=== PATIENT | male | born 1950 | race Caucasian/White ===

== ENCOUNTER 2017-12-08 22:08 | Inpatient (IN) | payer MEDICARE, OTHER ==
[2017-12-08] VITALS (7 sets, daily range): BP systolic 156–180; BP diastolic 80–90; PULSE 73–77; RESP 16; TEMP 97.8; O2SAT 97–99
[~2017-12-08] VITALS: Ht 172.7 cm; Wt 89.1 kg
[2017-12-08] MEDS ORDERED: SODIUM CHLOR 0.9% 1000 ML INJ 1,000 ML IV ONE (22:11)
[2017-12-08 22:22] LABS: AUTOMATED NEUTROPHIL # 3.8 TH/MM3 (1.8-7.7); BASOPHIL % 0.4 % (0.0-2.0); EOSINOPHIL # 0.2 TH/MM3 (0-0.4); EOSINOPHIL % 2.9 % (0.0-4.0); HEMATOCRIT 40.6 % (39.0-51.0); HEMOGLOBIN 13.9 GM/DL (13.0-17.0); LYMPHOCYTE # 2.4 TH/MM3 (1.0-4.8); MEAN CELL VOLUME 98.2 FL (80.0-100.0); MEAN CORPUSCULAR HEMOGLOBIN 33.7 PG (27.0-34.0); MEAN CORPUSCULAR HGB CONC 34.4 % (32.0-36.0); MEAN PLATELET VOLUME 7.5 FL (7.0-11.0); MONOCYTE # 0.9 TH/MM3 (0-0.9); NEUT % 51.7 % (16.0-70.0); PLATELET COUNT 245 TH/MM3 (150-450); RED BLOOD COUNT 4.13 MIL/MM3 (4.50-5.90); RED CELL DISTRIBUTION WIDTH 12.9 % (11.6-17.2); WHITE BLOOD COUNT 7.4 TH/MM3 (4.0-11.0)
--- NOTE | 2017-12-08 22:28 | RADRPT ---
EXAM DATE/TIME: 12/08/2017 22:14 [facility] COMPARISON: No previous studies available for comparison. INDICATIONS : Stroke alert; right sided weakness. RADIATION DOSE: 66.34 CTDIvol (mGy) This report was called by Dr. Edge to Dr. Niño at 10: 20 PM on 12/08/17. MEDICAL HISTORY : Non-responsive. SURGICAL HISTORY : Non-responsive. ENCOUNTER: Initial ACUITY: 1 day PAIN SCALE: 0/10 LOCATION: cranial TECHNIQUE: Multiple contiguous axial images were obtained of the head. Using automated exposure control and adj ustment of the mA and/or kV according to patient size, radiation dose was kept as low as reasonably a chievable to obtain optimal diagnostic quality images. DICOM format image data is available electro nically for review and comparison. FINDINGS: Moderate periventricular and subcortical white matter small vessel ischemic changes are noted bilater ally. Mild central cerebral atrophy is noted. There is no acute hemorrhage, acute infarct, mass effec t, midline shift or extra-axial fluid collections. CONCLUSION: 1. No acute infarct, acute hemorrhage, mass effect or extra-axial fluid collections. 2. Moderate periventricular and subcortical white matter small vessel ischemic changes bilaterally. 3. Mild central cerebral atrophy. Juanito Edge MD on December 08, 2017 at 22:24 Board Certified Radiologist. This report was verified electronically.
[2017-12-08 22:41] LABS: TROPONIN I LESS THAN 0.02 NG/ML (0.02-0.05)
[2017-12-08] MEDS ORDERED: ALTEPLASE BOLUS 9 MG/9 ML SYR IV ONE (22:45)
[2017-12-08] MEDS ORDERED: MISCELLANEOUS NURSING INFORMATION XX PRN (22:45)
[2017-12-08] MEDS ORDERED: ALTEPLASE DRIP IV ONE (22:45)
[2017-12-08] MEDS ORDERED: SODIUM CHLORIDE 0.9% 50 ML BAG IVF ONE (22:45)
--- NOTE | 2017-12-08 22:46 | PD ---
HPI Chief Complaint: Stroke Alert Time Seen by Provider: 22:11 Travel History International Travel<30 days: No Contact w/Intl Traveler<30days: No Traveled to known affect area: No History of Present Illness HPI 67-year-old male brought in by ambulance from home as a stroke alert. At approximately a 9:45 PM, while watching TV in his bed the patient noticed that he could not move his right arm properly. He also experienced numbness/ tingling in his right arm and right leg. His who is a nurse immediately call 911. The patient has history of hypertension and takes aspirin 81 mg twice weekly. He denies chest pain or dyspnea. No visual disturbances. Upon arrival to the emergency department he reports that his left arm feels just as weak as it did at time of onset. He admits to drinking 6 beers since noon today , and drinks about 6 beers daily. No trauma. No recent major surgeries or trauma. FORMERLY [facility], [facility] Social History Tobacco Use: No (former smoker) Allergies-Medications (Allergen,Severity, Reaction): Coded Allergies: No Known Allergies (Unverified , 12/08/17) Reported Meds & Prescriptions Reported Meds & Active Scripts Active Reported Ramipril 10 Mg Cap 10 Mg PO DAILY Rabeprazole (Rabeprazole Sodium) 20 Mg Tab 20 Mg PO DAILY Aspirin 325 Mg Tab 325 Mg PO TUESDAY, TUESDAY Review of Systems Except as stated in HPI: all other systems reviewed are Neg Physical Exam Narrative GENERAL: Well-developed, well-nourished, awake, alert, GCS 15, no apparent distress. SKIN: Focused skin assessment warm/dry. HEAD: Atraumatic. Normocephalic. EYES: Pupils equal, round, 3 mm, reactive to light. EOMI. No scleral icterus. No injection or drainage. ENT: No nasal bleeding or discharge. Mucous membranes pink and moist. NECK: Trachea midline. No JVD. CARDIOVASCULAR: Regular rate and rhythm. No murmur appreciated. RESPIRATORY: No accessory muscle use. Clear to auscultation. Breath sounds equal bilaterally. GASTROINTESTINAL: Abdomen soft, non-tender, nondistended. Hepatic and splenic margins not palpable. MUSCULOSKELETAL: No obvious deformities. No clubbing. No cyanosis. No edema. NEUROLOGICAL: Awake and alert. No obvious cranial nerve deficits. Visual fernandez intact. Tow Motor Operator strength appears strong and equal bilaterally. There is pronator drift on the right. Ataxia with xavmqz-[id number] test with the right hand. Normal kqsyny-[id number]-pkvjkc test on the left hand. Bilateral lower extremities are without ataxia, without deficits, with equal strength bilaterally. PSYCHIATRIC: Appropriate mood and affect; insight and judgment normal. Data Data Last Documented VS Vital Signs Date Time Temp Pulse Resp B/P (MAP) Pulse Ox O2 Delivery O2 Flow Rate FiO2 12/08/17 22:24 98 Nasal Cannula 2.00 12/08/17 22:20 73 16 156/83 (107) 12/08/17 22:09 97.8 Orders Orders Activity Bed Rest (12/08/17 ) Electrocardiogram (12/08/17 ) I-Stat Profile (12/08/17 22:11) Prothrombin Time / Inr (Pt) (12/08/17 22:11) Act Partial Throm Time (Ptt) (12/08/17 22:11) Complete Blood Count With Diff (12/08/17 22:11) Fibrinogen (12/08/17 22:11) Creatine Kinase (Cpk) (12/08/17 22:11) Troponin I (12/08/17 22:11) Ua Includes Microscopic (12/08/17 22:11) Drug Screen, Random Urine (12/08/17 22:11) Type And Screen (12/08/17 22:11) Ct Brain W/O Iv Contrast(Rout) (12/08/17 ) Consult Neurology (12/08/17 ) Blood Glucose (12/08/17 22:11) Ecg Monitoring (12/08/17 22:11) Neuro Checks Q2HX12,Q4H (12/08/17 22:11) Nursing Bedside Swallow Assess .ONCE (12/08/17 22:11) Iv Access Insert/Monitor (12/08/17 22:11) NPO (12/08/17 22:11) Oximetry (12/08/17 22:11) Resp Oxygen Nc Stroke (12/08/17 ) Sodium Chlor 0.9% 1000 Ml Inj (Ns 1000 M (12/08/17 22:11) Cath For Specimen (12/08/17 22:11) Alcohol (Ethanol) (12/08/17 22:11) ^ Call Pharmacy (12/08/17 22:36) Nih Stroke Scale - Nihss .ONCE (12/08/17 22:36) Anticoagulant Alert (12/08/17 22:36) ^ Post Infusion Restrictions (12/08/17 22:36) ^ Medication Alert (12/08/17 22:36) Vital Signs (Adult) .As directed (12/08/17 22:36) Notify Dr: Blood Pressure (12/08/17 22:36) ^ Medication Alert (12/08/17 22:36) Alteplase Bolus (Activase Bolus) (12/08/17 22:45) Alteplase Drip (Activase Drip) (12/08/17 22:45) Sodium Chloride 0.9% Inj (Ns Inj) (12/08/17 22:45) Misc Nursing Information (12/08/17 22:45) Resp Oxygen Nc Stroke (12/08/17 ) Ct Brain W/O Iv Contrast(Rout) (12/09/17 ) Admit Order (Ed Use Only) (12/08/17 22:46) Labs Laboratory Tests Test 12/08/17 22:00 White Blood Count 7.4 TH/MM3 Red Blood Count 4.13 MIL/MM3 Hemoglobin 13.9 GM/DL Bedside Hemoglobin 14.6 G/DL Hematocrit 40.6 % Bedside Hematocrit 43.0 % Mean Corpuscular Volume 98.2 FL Mean Corpuscular Hemoglobin 33.7 PG Mean Corpuscular Hemoglobin Concent 34.4 % Red Cell Distribution Width 12.9 % Platelet Count 245 TH/MM3 Mean Platelet Volume 7.5 FL Neutrophils (%) (Auto) 51.7 % Lymphocytes (%) (Auto) 33.0 % Monocytes (%) (Auto) 12.0 % Eosinophils (%) (Auto) 2.9 % Basophils (%) (Auto) 0.4 % Neutrophils # (Auto) 3.8 TH/MM3 Lymphocytes # (Auto) 2.4 TH/MM3 Monocytes # (Auto) 0.9 TH/MM3 Eosinophils # (Auto) 0.2 TH/MM3 Basophils # (Auto) 0.0 TH/MM3 CBC Comment DIFF FINAL Differential Comment Prothrombin Time 12.9 SEC Prothromb Time International Ratio 1.3 RATIO Activated Partial Thromboplast Time 32.7 SEC Fibrinogen 278 mg/dL Bedside Sodium 134 MMOL/L Bedside Potassium 3.9 MMOL/L Bedside Chloride 94 MMOL/L Bedside Blood Urea Nitrogen 6 MG/DL Bedside Creatinine 0.9 MG/DL Bedside Glucose 97 MG/DL Total Creatine Kinase 97 U/L Troponin I LESS THAN 0.02 NG/ML Triglycerides Level 112 MG/DL Cholesterol Level 184 MG/DL LDL Cholesterol 75 MG/DL HDL Cholesterol 86.7 MG/DL Cholesterol/HDL Ratio 2.12 RATIO Ethyl Alcohol Level 137 MG/DL [facility] Medical Screen Exam Complete: Yes Emergency Medical Condition: Yes Differential Diagnosis CVA, ICH, metabolic abnormality, Narrative Course 10:10 PM: Case discussed with neurologist Dr. Casey. Patient is a TPA candidate. 10:25 PM: I was called by radiologist Dr. Edge who reports that there is no acute intracranial abnormality such as hemorrhage. Patient is awake and alert with a GCS of 15. Upon return from CT scan he remains with feeling weakness in his right upper extremity with pronator drift and ataxia in the right upper extremity on exam. I discussed the risks and benefits of TPA with the patient and the patient's , and they would like to proceed with treatment with this medication. Case discussed with display artist Dr. Rosario who will admit the patient to his service. Critical Care Narrative Aggregate critical care time was 35 minutes. Time to perform other separately billable procedures was not included in the critical care time. My time did not include minutes spent treating any other patients simultaneously or on activities that did not directly contribute to the patient's treatment. The services I provided to this patient were to treat and/or prevent clinically significant deterioration that could result in: , permanent disability, worsening clinical condition I provided critical care services requiring my management, as noted below: Chart data review, documentation time, medication orders and management, vital sign assessments/reviewing monitor data, ordering and reviewing lab tests, ordering and interpreting/reviewing x-rays and diagnostic studies, care of the patient and discussion of the patient with the admitting physicians. Stroke Alert NIHSS NIH Stroke Scale Result: 1 NIHSS Time Completed: 23:50 Diagnosis Diagnosis: Primary Impression: CVA (cerebral vascular accident) Qualified Codes: I63.9 - Cerebral infarction, unspecified Admitting Physician Requests: Admit Zac Niño MD Dec 08, 2017 22:46
[2017-12-08] MEDS: SODIUM CHLOR 0.9% 1000 ML INJ 1,000 ML IV SCH (22:51)
[2017-12-08] MEDS ORDERED: CHLORHEXIDINE GLUCONATE 2 % 1 PACK (2 CLOTHS) TOP PRN (23:00)
[2017-12-08] MEDS ORDERED: MAGNESIUM OXIDE 400 MG TAB PO PRN (23:00)
[2017-12-08] MEDS ORDERED: MAGNESIUM HYDROXIDE SUSP 30 ML CUP PO PRN (23:00)
[2017-12-08] MEDS ORDERED: MAGNESIUM SULFATE INJ 4 GM in SODIUM CHLORIDE 0.9% INJ 92 ML IV PRN (23:00)
[2017-12-08] MEDS ORDERED: MISCELLANEOUS NURSING INFORMATION XX SCH (23:00)
[2017-12-08] MEDS ORDERED: POTASSIUM PHOSPHATE INJ 30 MMOL in SODIUM CHLOR 0.9% 250 ML INJ 250 ML IV PRN (23:00)
[2017-12-08] MEDS ORDERED: POTASSIUM CHLOR 20 MEQ PREMIX 100 ML IV PRN ×2 (23:00)
[2017-12-08] MEDS ORDERED: POTASSIUM PHOSPHATE MONOBASIC 500 MG TAB PO PRN (23:00)
[2017-12-08] MEDS ORDERED: POTASSIUM PHOSPHATE MONOBASIC 500 MG TAB PO/TUBE PRN (23:00)
[2017-12-08] MEDS ORDERED: POTASSIUM CHLORIDE 25 MEQ EFFERVESCENT TAB PO PRN (23:00)
[2017-12-08] MEDS ORDERED: MAGNESIUM SULFATE INJ 2 GM in SODIUM CHLORIDE 0.9% INJ 96 ML IV PRN (23:00)
[2017-12-08] MEDS ORDERED: hydrALAZINE HCL 20 MG/ML VIAL IV PUSH PRN (23:00)
[2017-12-08] MEDS ORDERED: ACETAMINOPHEN 325 MG TAB PO PRN (23:00)
[2017-12-08] MEDS ORDERED: POTASSIUM CHLOR 40 MEQ PREMIX 100 ML IV PRN ×2 (23:00)
[2017-12-08] MEDS ORDERED: ONDANSETRON HCL 4 MG/2 ML VIAL IV PUSH PRN (23:00)
[2017-12-08] MEDS ORDERED: RESP: ALBUTEROL 2.5 MG/IPRATROPIUM 0.5 MG NEB (PRN) INH (23:00)
[2017-12-08] MEDS ORDERED: SODIUM PHOSPHATE INJ 30 MMOL in SODIUM CHLOR 0.9% 250 ML INJ 240 ML IV PRN (23:00)
[2017-12-08 23:05] LABS: INTERNATIONAL NORMALIZED RATIO 1.3 RATIO; PROTHROMBIN TIME - PATIENT 12.9 SEC (9.8-11.6)
--- NOTE | 2017-12-08 23:08 | HHI.HP ---
HPI Service Critical Care Medicine Primary Care Physician Unknown Admission Diagnosis CVA Diagnosis: Chief Complaint: right arm weakness Travel History International Travel<30 Days: No Contact w/Intl Traveler <30 Da: No Traveled to Known Affected Are: No History of Present Illness This is a 67-year-old male who presents from home after he found he could not use the remote control with his right arm at approximately 9:45 PM. [facility] was called and he was immediately brought in for evaluation. His initial NIH stroke scale as documented by the emergency room nurses was 6. He had a noncontrasted head CT which was negative for acute hemorrhage. Consultation with Dr. Casey with neurology, and together with the ER physician decided to move forward with IV TPA systemically. Patient's symptoms were right-sided weakness along with significant right-sided ataxia. On my evaluation, the patient states he feels symptoms already starting to resolve. He denies any other symptoms such as headache, fever, chills, nausea, vomiting, shortness of breath, chest pain, abdominal pain. The patient does drink approximately 6 beers a day and has drank 6 beers today prior to coming in and had an elevated ethanol level greater than 150. Review of systems otherwise negative. Review of Systems Constitutional: DENIES: Fatigue, Fever, Chills Respiratory: DENIES: Cough, Wheezing, Hemoptysis, Sputum production, Shortness of breath Cardiovascular: DENIES: Chest pain, Palpitations, Syncope, Dyspnea on Exertion , PND, Lower Extremity Edema, Orthopnea Gastrointestinal: DENIES: Abdominal pain, Black stools, Bloody stools, Constipation, Diarrhea, Nausea, Vomiting Hematologic/lymphatic: DENIES: Bruising Neurologic: COMPLAINS OF: Localized weakness, Tremor, DENIES: Abnormal gait, Headache, Paresthesias, Seizures, Speech Problems, Poor Balance Psychiatric: DENIES: Anxiety, Confusion Past Family Social History Allergies: Coded Allergies: No Known Allergies (Unverified , 12/08/17) Past Medical History Hypertension Past Surgical History No recent surgeries. Reported Medications Ramipril 10 Mg Cap 10 Mg PO DAILY Rabeprazole (Rabeprazole Sodium) 20 Mg Tab 20 Mg PO DAILY Aspirin 325 Mg Tab 325 Mg PO TUESDAY, TUESDAY Active Ordered Medications See MAR Family History Reviewed and found to be noncontributory to his acute illness Social History Denies tobacco. Endorses 6 beers per day drinker. Physical Exam Vital Signs Vital Signs Date Time Temp Pulse Resp B/P (MAP) Pulse Ox O2 Delivery O2 Flow Rate FiO2 12/08/17 23:05 75 16 174/90 (118) 97 Nasal Cannula 2.00 12/08/17 22:55 77 16 170/81 (110) 97 Nasal Cannula 2.00 12/08/17 22:24 98 Nasal Cannula 2.00 12/08/17 22:20 73 16 156/83 (107) 97 Nasal Cannula 2.00 12/08/17 22:09 97.8 75 16 179/90 (119) 97 12/08/17 22:00 97 2.00 Physical Exam GENERAL: Middle-aged male, lying in bed, in distress due to his weakness HEENT: Normocephalic. Atraumatic. Pupils equal, round, reactive, conjugate. Mucous membranes are moist NECK: Trachea is midline. There is no JVD. CHEST: Equal chest rise. Room air. CARDIOVASCULAR: Normal rate, regular rhythm. Sinus by telemetry. Blood pressure is 180 systolic on my evaluation ABDOMEN: Soft, nontender, nondistended. No guarding. MUSCULOSKELETAL: Pulses 2+. No peripheral edema. NEUROLOGICAL: GCS of 15. RASS 0. Follows commands in all 4 extremities. Cranial nerves II through XII grossly intact. Muscular skeletal strength is now 5 out of 5 in all 4 extremities. The patient still does have some mild ataxia as evidenced by finger-nose on the right, but per the patient and his this is significantly improved over prior examination. Sensation grossly intact bilaterally Laboratory Laboratory Tests Test 12/08/17 22:00 White Blood Count 7.4 Red Blood Count 4.13 Hemoglobin 13.9 Bedside Hemoglobin 14.6 Hematocrit 40.6 Bedside Hematocrit 43.0 Mean Corpuscular Volume 98.2 Mean Corpuscular Hemoglobin 33.7 Mean Corpuscular Hemoglobin Concent 34.4 Red Cell Distribution Width 12.9 Platelet Count 245 Mean Platelet Volume 7.5 Neutrophils (%) (Auto) 51.7 Lymphocytes (%) (Auto) 33.0 Monocytes (%) (Auto) 12.0 Eosinophils (%) (Auto) 2.9 Basophils (%) (Auto) 0.4 Neutrophils # (Auto) 3.8 Lymphocytes # (Auto) 2.4 Monocytes # (Auto) 0.9 Eosinophils # (Auto) 0.2 Basophils # (Auto) 0.0 CBC Comment DIFF FINAL Differential Comment Prothrombin Time 12.9 Prothromb Time International Ratio 1.3 Activated Partial Thromboplast Time 32.7 Fibrinogen 278 Bedside Sodium 134 Bedside Potassium 3.9 Bedside Chloride 94 Bedside Blood Urea Nitrogen 6 Bedside Creatinine 0.9 Bedside Glucose 97 Total Creatine Kinase 97 Troponin I LESS THAN 0.02 Ethyl Alcohol Level 137 Result Diagram: 12/08/17 2200 Imaging Last Impressions Head CT 12/08/17 0000 Signed Impressions: Service Date/Time: December 22:14 - CONCLUSION: 1. No acute infarct, acute hemorrhage, mass effect or extra-axial fluid collections. 2. Moderate periventricular and subcortical white matter small vessel ischemic changes bilaterally. 3. Mild central cerebral atrophy. MD Scott Gates VTE Risk Assessment Caprini VTE Risk Assessment: Mod/High Risk (score >= 2) VTE Pharm Contraindication: High risk for bleeding Caprini Risk Assessment Model Point Value = 1 Point Value = 2 Point Value = 3 Point Value = 5 Age 41-60 Minor surgery BMI > 25 kg/m2 Swollen legs Varicose veins or History of unexplained or recurrent spontaneous Oral contraceptives or hormone replacement Sepsis (< 1 month) Serious lung disease, including pneumonia (< 1 month) Abnormal pulmonary function Acute myocardial infarction Congestive heart failure (< 1 month) History of inflammatory bowel disease Medical patient at bed rest Age 61-74 Arthroscopic surgery Major open surgery (> 45 min) Laparoscopic surgery (> 45 min) Malignancy Confined to bed (> 72 hours) Immobilizing plaster cast Central venous access Age >= 75 History of VTE Family history of VTE Factor V Leiden Prothrombin [id number] Lupus anticoagulant Anticardiolipin antibodies Elevated serum homocysteine Heparin-induced thrombocytopenia Other congenital or acquired thrombophilia Stroke (< 1 month) Elective arthroplasty Hip, pelvis, or leg fracture Acute spinal cord injury (< 1 month) Prophylaxis Regimen Total Risk Factor Score Risk Level Prophylaxis Regimen 0-1 Low Early ambulation 2 Moderate Order ONE of the following: *Sequential Compression Device (SCD) *Heparin 5000 units SQ BID 3-4 Higher Order ONE of the following medications: *Heparin 5000 units SQ TID *Enoxaparin/Lovenox 40 mg SQ daily (WT < 150 kg, CrCl > 30 mL/min) *Enoxaparin/Lovenox 30 mg SQ daily (WT < 150 kg, CrCl > 10-29 mL/min) *Enoxaparin/Lovenox 30 mg SQ BID (WT < 150 kg, CrCl > 30 mL/min) AND/OR *Sequential Compression Device (SCD) 5 or more Highest Order ONE of the following medications: *Heparin 5000 units SQ TID (Preferred with Epidurals) *Enoxaparin/Lovenox 40 mg SQ daily (WT < 150 kg, CrCl > 30 mL/min) *Enoxaparin/Lovenox 30 mg SQ daily (WT < 150 kg, CrCl > 10-29 mL/min) *Enoxaparin/Lovenox 30 mg SQ BID (WT < 150 kg, CrCl > 30 mL/min) AND *Sequential Compression Device (SCD) Assessment and Plan Assessment and Plan Assessment: 67-year-old male with new onset of right-sided weakness and ataxia, likely acute CVA. Now status post systemic TPA with resolving symptoms. Still high risk for bleeding and significant morbidity given age. Intoxication limits complete neurologic exam, and may make it more difficult to detect changes in mentation or neurologic deficits. Admit to ICU. Frequent neuro checks. Watch for alcohol withdrawal. Critically ill with new acute CVA Active problems: EtOH intoxication Acute CVA Right-sided weakness Right-sided ataxia Hypertensive emergency Plan: Admit to ICU Frequent neuro checks Head of bed elevated Bedrest 24 hours Nursing bedside swallow evaluation prior to any medication administration. Advance diet slowly after this if he passes bedside swallow Speech therapy, physical therapy, Occupational Therapy Lipid panel 2D echo We will need aspirin 24 hours after TPA as well as DVT prophylaxis Watch for EtOH withdrawal We will hold on ordering CIWA protocol given his new acute stroke and need for frequent neuro checks. May need to order CIWA protocol after he is out of his window for bleed conversion Repeat head CT at 24 hours Neurology consultation: Dr. Casey This patient remains critically ill with one or more organ systems which are or may become a threat to life. I have spent in excess of 31 minutes discontinuously in the care and management of this patient. This time is exclusive of procedures, and includes, but is not limited to, evaluation of the patient, review of the medical record, discussions with family, consultants, nursing staff, or respiratory therapy, and documentation in the medical record. Otis Rosario MD Dec 08, 2017 23:08
[2017-12-08] MEDS ORDERED: RABE1TAB PO (23:30)
[2017-12-08] MEDS ORDERED: ASPI-183 PO (23:30)
[2017-12-08] MEDS ORDERED: RAMI10CA PO (23:30)
[2017-12-08 23:47] LABS: CHOLESTEROL/ HDL RATIO 2.12 RATIO; HDL CHOLESTEROL 86.7 MG/DL (40.0-60.0)
[2017-12-09] VITALS (15 sets, daily range): BP systolic 126–174; BP diastolic 60–89; PULSE 58–86; RESP 13–19; TEMP 97.6–98.4; O2SAT 95–100
[2017-12-09] MEDS: LABETALOL HCL 100 MG/20 ML VIAL IV PUSH PRN ×2 (02:22→04:20)
[2017-12-09 03:28] LABS: HEMATOCRIT 37.2 % (39.0-51.0); HEMOGLOBIN 12.7 GM/DL (13.0-17.0); MEAN CELL VOLUME 99.6 FL (80.0-100.0); MEAN CORPUSCULAR HGB CONC 34.1 % (32.0-36.0); MEAN PLATELET VOLUME 7.6 FL (7.0-11.0); PLATELET COUNT 218 TH/MM3 (150-450); RED BLOOD COUNT 3.74 MIL/MM3 (4.50-5.90); RED CELL DISTRIBUTION WIDTH 12.9 % (11.6-17.2); WHITE BLOOD COUNT 10.4 TH/MM3 (4.0-11.0)
[2017-12-09 03:50] LABS: BICARBONATE 24.3 MEQ/L (21.0-32.0); CALCIUM 8.4 MG/DL (8.5-10.1); CREATININE 0.57 MG/DL (0.60-1.30)
[2017-12-09 03:52] LABS: CHOLESTEROL/ HDL RATIO 1.92 RATIO; HDL CHOLESTEROL 81.5 MG/DL (40.0-60.0)
[2017-12-09] MEDS: CHLORHEXIDINE GLUCONATE 2 % 1 PACK (2 CLOTHS) TOP SCH (04:00)
--- NOTE | 2017-12-09 07:25 | HHI.CCPN ---
Subjective Remarks/Hospital Course This is a 67-year-old male who presents from home after he found he could not use the remote control with his right arm at approximately 9:45 PM. [facility] was called and he was immediately brought in for evaluation. His initial NIH stroke scale as documented by the emergency room nurses was 6. He had a noncontrasted head CT which was negative for acute hemorrhage. Consultation with Dr. Casey with neurology, and together with the ER physician decided to move forward with IV TPA systemically. Patient's symptoms were right-sided weakness along with significant right-sided ataxia. On my evaluation, the patient states he feels symptoms already starting to resolve. He denies any other symptoms such as headache, fever, chills, nausea, vomiting, shortness of breath, chest pain, abdominal pain. The patient does drink approximately 6 beers a day and has drank 6 beers today prior to coming in and had an elevated ethanol level greater than 150. Review of systems otherwise negative. 12/09: Symptoms resolved after tPA. Alert, conversant this morning. Hypertensive. Watch for detox - may need CIWA protocol. Objective Vital Signs Date Time Temp Pulse Resp B/P (MAP) Pulse Ox O2 Delivery O2 Flow Rate FiO2 12/09/17 06:00 70 12/09/17 04:00 97.6 15 174/89 (117) 98 12/09/17 01:06 Nasal Cannula 2.00 Intake and Output 12/09/17 12/09/17 12/10/17 08:00 16:00 00:00 Intake Total 120 ml Output Total 1500 ml Balance -1380 ml Result Diagram: 12/09/17 0312 12/09/17 0312 Imaging Last Impressions Head CT 12/08/17 0000 Signed Impressions: Service Date/Time: December 22:14 - CONCLUSION: 1. No acute infarct, acute hemorrhage, mass effect or extra-axial fluid collections. 2. Moderate periventricular and subcortical white matter small vessel ischemic changes bilaterally. 3. Mild central cerebral atrophy. Juanito Edge MD Objective Remarks GENERAL: Middle-aged male, lying in bed, clam. HEENT: Normocephalic. Atraumatic. Pupils equal, round, reactive, conjugate. Mucous membranes are moist NECK: Trachea is midline. Airway widely patent. CHEST: Equal chest rise. Comfortable pattern. CARDIOVASCULAR: Normal rate, regular rhythm. Sinus by telemetry. No JVD. ABDOMEN: Soft, nontender, nondistended. No guarding. BS active. MUSCULOSKELETAL: Pulses 2+. No peripheral edema. Well perfused. NEUROLOGICAL: GCS of 15. RASS 0. Follows commands in all 4 extremities. Cranial nerves II through XII grossly intact. Muscular skeletal strength is now 5 out of 5 in all 4 extremities. Sensation grossly intact bilaterally Conversant. A/P Assessment and Plan Assessment: 67-year-old male with new onset of right-sided weakness and ataxia, likely acute CVA. Now status post systemic TPA with resolving symptoms. Still high risk for bleeding and significant morbidity given age. Intoxication limits complete neurologic exam, and may make it more difficult to detect changes in mentation or neurologic deficits. ICU for 24 hours.. Frequent neuro checks. Watch for alcohol withdrawal. Active problems: EtOH intoxication Acute CVA Right-sided weakness Right-sided ataxia Hypertensive emergency Plan: Admit to ICU Frequent neuro checks Head of bed elevated Bedrest 24 hours Nursing bedside swallow evaluation prior to any medication administration. Advance diet slowly after this if he passes bedside swallow Speech therapy, physical therapy, Occupational Therapy Lipid panel 2D echo We will need aspirin 24 hours after TPA as well as DVT prophylaxis Watch for EtOH withdrawal We will hold on ordering CIWA protocol given his new acute stroke and need for frequent neuro checks. May need to order CIWA protocol after he is out of his window for bleed conversion Repeat head CT at 24 hours Neurology consultation: Dr. Casey Restart MARQUITA-I Overall impression: Resolution of all gross sysmptoms after tPA. Ongoing PT/OT evaluation and followup CT scan today. Elias Stinson MD Dec 09, 2017 07:25
[2017-12-09 07:26] LABS: BACTERIA, URINE RARE /hpf; BILIRUBIN, URINE NEG (NEG); BLOOD, URINE NEG (NEG); GLUCOSE,URINE NEG (NEG); KETONE, URINE NEG (NEG); NITRITE,URINE NEG (NEG); PH, URINE 6.5 (5.0-8.5); URINE COLOR LIGHT-YELLOW (YELLW/STRAW); URINE LEUKOCYTE ESTERASE NEG (NEG)
[2017-12-09] MEDS ORDERED: FLUMAZENIL 0.5 MG/5 ML VIAL IV PUSH PRN (07:30)
[2017-12-09] MEDS ORDERED: LORazepam 2 MG TAB PO PRN (07:30)
[2017-12-09] MEDS ORDERED: LORazepam 2 MG/ML VIAL IV PUSH PRN ×4 (07:30)
[2017-12-09] MEDS ORDERED: LORazepam 1 MG TAB PO PRN (07:30)
--- NOTE | 2017-12-09 08:50 | EKG ---
Date Performed: 12/08/2017 Time Performed: 22:38:30 PTAGE: 67 years EKG: Sinus rhythm NORMAL ECG NO PREVIOUS TRACING DOCTOR: Nery Christianson Interpretating Date/Time 12/09/2017 08:48:30
--- NOTE | 2017-12-09 09:23 | RADRPT ---
EXAM DATE/TIME: 12/09/2017 08:37 [facility] COMPARISON: No previous studies available for comparison. INDICATIONS : Cerebrovascular accident. MEDICAL HISTORY : Hypertension. Gastroesophageal reflux disease. SURGICAL HISTORY : None. ENCOUNTER: Initial ACUITY: 1 day PAIN SCORE: 10 LOCATION: Bilateral neck PEAK SYSTOLIC VELOCITIES (cm/sec): ICA/CCA RATIO: Right: 1.3 Left: 1.2 ICA: Right: 122 Left: 122 CCA: Right: 97 Left: 103 ECA: Right: 141 Left: 117 VERTEBRAL: Right: 43 antegrade Left: 57 antegrade Elevated flow velocities and ICA/CCA ratios have been found to correlate with increased degrees of vessel stenosis, calculated as percentage of diameter relative to a normal segment of distal ICA/CCA FINDINGS: RIGHT CAROTID: No significant stenosis is visualized. The waveforms are within normal limits. LEFT CAROTID: No significant stenosis is visualized. The waveforms are within normal limits. VERTEBRAL ARTERIES: Antegrade flow is seen in both vertebral arteries. MISCELLANEOUS: None. CONCLUSION: There is no evidence for hemodynamically significant stenosis. Deepak Dexter MD on December 09, 2017 at 9:21 Board Certified Radiologist. This report was verified electronically.
[2017-12-09] MEDS: DOCUSATE SODIUM 50 MG/SENNA 8.6 MG TAB PO SCH ×2 (09:42→21:08)
[2017-12-09] MEDS: SODIUM CHLOR 0.9% 1000 ML INJ 1,000 ML IV SCH (10:46)
[2017-12-09] MEDS: RAMIPRIL 5 MG CAP PO SCH (11:39)
--- NOTE | 2017-12-09 14:18 | MB ---
cc: Gianfranco Casey MD, PhD DATE OF CONSULT: REASON FOR CONSULTATION: Stroke-alert. HISTORY OF PRESENT ILLNESS: Mr. Sandoval is a 67-year-old man who has a history of hypertension, previously in good health until this evening, around 09:45 p.m., while watching TV suddenly had difficulty moving his right arm, with weakness and clumsiness, leg weakness as well. He had some mild ataxia. No speech changes. No aphagia. His called 911. He was brought to the hospital as a stroke-alert. He has had some improvement in the right hand strength, but still has a lot of clumsiness, as well as right leg strength. He denies headache. No prior history of stroke. His gave him an aspirin tonight. He normally does not take aspirin every day, but takes it 2 days a week. PAST MEDICAL HISTORY: Hypertension. MEDICATIONS AT HOME: He takes an antihypertensive medication. He is not on any anticoagulant medication. He takes an aspirin 2 days a week. NEUROLOGICAL EXAMINATION: VITAL SIGNS: His blood pressure is 156/83, pulse 73, respirations 16. GENERAL: Higher critical functions are normal. NEUROLOGIC: Cranial nerves, motor exam. 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 He is weak in the right leg at 4/5. Proximal strength in the right arm is 5/5. He has got dysmetria in the right upper extremity, with diminished fine motor skills in the right hand. He has got a drift of the right upper extremity. IMAGING: CT of the brain, chronic ischemic change. No acute change present. LABORATORY DATA: His white count 7,400, hemoglobin 13.9, hematocrit 40.6%, platelets 245,000. Sodium 134, potassium 2.9, chloride 94, BUN 6, creatinine 0.9, glucose 97. Coags pending. STUDY: EKG Sinus rhythm. IMPRESSION: Acute stroke. RECOMMENDATIONS: The patient is a candidate for intravenous TPA and this was discussed with Dr. Baron. The patient has already started on the intravenous TPA. His and he both understand the risks and benefits and do agree to proceed. His NIH Stroke Scale is relatively low, definitely less than 6. Therefore, would not recommend CTA. Would withhold anticoagulants or antiplatelets for 24 hours. We will obtain a post-[address] of the brain. Also, recommend further evaluation with carotid ultrasound, echocardiogram, MRI and MRA of the brain, and lipid panel. Gianfranco Casey MD, PhD ROCHELLE/MONIQUE , 10:55 PM , 11:21 PM
--- NOTE | 2017-12-09 14:35 | ECHRPT ---
Indication: CVA/TIA CONCLUSIONS The left ventricular systolic function is low normal with an estimated ejection fraction in the rang e of 50- 55%. Mild concentric left ventricular hypertrophy. Normal left ventricular size. The left atrial size is upper limits of normal. Mild mitral valve regurgitation. There is mild tricuspid valve regurgitation. The estimated pulmonary arterial pressure is 31.7 mmHg. BP: 174 / 89 HR: 72 Rhythm: Sinus MEASUREMENTS (Male / Female) Normal Values Technical Quality:Good 2D ECHO LV Diastolic Diameter PLAX 4.0 cm 4.2 - 5.9 / 3.9 - 5.3 cm LV Systolic Diameter PLAX 3.2 cm IVS Diastolic Thickness 1.2 cm 0.6 - 1.0 / 0.6 - 0.9 cm LVPW Diastolic Thickness 1.2 cm 0.6 - 1.0 / 0.6 - 0.9 cm LV Relative Wall Thickness 0.6 LVOT Diameter 2.4 cm M-MODE Aortic Root Diameter MM 4.0 cm LA Systolic Diameter MM 4.2 cm LA Ao Ratio MM 1.1 AV Cusp Separation MM 2.3 cm DOPPLER AV Peak Velocity 114.0 cm/s AV Peak Gradient 5.2 mmHg LVOT Peak Velocity 98.7 cm/s LVOT Peak Gradient 3.9 mmHg AV Area Cont Eq pk 3.9 cm MR Peak Velocity 292.0 cm/s MR Peak Gradient 34.1 mmHg Mitral E Point Velocity 68.6 cm/s Mitral A Point Velocity 80.5 cm/s Mitral E to A Ratio 0.9 LV E' Lateral Velocity 13.7 cm/s Mitral E to LV E' Lateral Ratio 5.0 LV E' Septal Velocity 8.1 cm/s Mitral E to LV E' Septal Ratio 8.5 TR Peak Velocity 233.0 cm/s TR Peak Gradient 21.7 mmHg Right Atrial Pressure 10.0 mmHg Pulmonary Artery Systolic Pressu 31.7 mmHg Right Ventricular Systolic Press 31.7 mmHg PV Peak Velocity 82.8 cm/s PV Peak Gradient 2.7 mmHg FINDINGS LEFT VENTRICLE The left ventricular systolic function is low normal with an estimated ejection fraction in the rang e of 50- 55%. Mild concentric left ventricular hypertrophy. Normal left ventricular size. RIGHT VENTRICLE Normal right ventricular size and systolic function. LEFT ATRIUM The left atrial size is upper limits of normal. RIGHT ATRIUM The right atrial size is normal. ATRIAL SEPTUM Normal atrial septal thickness without atrial level shunting by limited color doppler interrogation. AORTA The aortic root and proximal ascending aorta are normal in size on limited imaging. MITRAL VALVE Mild mitral valve regurgitation. AORTIC VALVE Trileaflet aortic valve. No aortic valve stenosis or regurgitation. TRICUSPID VALVE There is mild tricuspid valve regurgitation. The estimated pulmonary arterial pressure is 31.7 mmHg. PULMONARY VALVE No pulmonary valve regurgitation or stenosis. VESSELS The inferior vena cava is normal in size. PERICARDIUM No pericardial effusion. Andrea Phan MD, FACC, [facility] [place] (Electronically Signed) Final Date:09 December 2017 14:34
[2017-12-09 14:58] LABS: HEMOGLOBIN A1C 5.6 % (4.3-6.0)
--- NOTE | 2017-12-09 16:33 | RADRPT ---
EXAM DATE/TIME: 12/09/2017 16:06 [facility] COMPARISON: No previous studies available for comparison. INDICATIONS : CVA. MEDICAL HISTORY : Hypertension. SURGICAL HISTORY : None. ENCOUNTER: Initial ACUITY: 1 day PAIN SCORE: 0/10 LOCATION: cranial Please note a normal MRA of the brain does not entirely exclude the possibility of a small aneurysm, nor the possibility of distal intracranial vessel disease. TECHNIQUE: 3D time of flight MRA was performed. Source images, multiplanar STS MIP, and 3D volume MIP reconstru ctions were reviewed. FINDINGS: There is excellent visualization of the major intracranial arteries out to the second-order branch ve ssels. There is no evidence for aneurysm, vessel truncation or stenosis, and no evidence for vascula r malformation. CONCLUSION: Normal examination. Marcelino Purdy MD on December 09, 2017 at 16:27 Board Certified Radiologist. This report was verified electronically.
[2017-12-09] MEDS ORDERED: GADODIAMIDE PF 287 MG/ML 20 ML VIAL (for RAD MRI) IVCONTRAST ONE (16:36)
--- NOTE | 2017-12-09 16:46 | RADRPT ---
EXAM DATE/TIME: 12/09/2017 16:06 [facility] COMPARISON: No previous studies available for comparison. INDICATIONS : CVA. CONTRAST: 18 cc Omniscan (gadodiamide) IV MEDICAL HISTORY : Hypertension. SURGICAL HISTORY : None. ENCOUNTER: Initial ACUITY: 1 day PAIN SCORE: 0/10 LOCATION: cranial TECHNIQUE: Multiplanar, multisequence MRI of the brain was performed both prior to and following the administrat ion of paramagnetic contrast. FINDINGS: There are scattered punctate areas of focally restricted diffusion in the high convexity left parieta l-occipital subcortical region and a single punctate focus of restricted diffusion in the periventric ular white matter posterior to the trigone of left lateral ventricle. There is patchy T2 prolongation in the periventricular and subcortical white matter elsewhere. There is no evidence of intracranial mass or hemorrhage. The ventricles are symmetric and normal in size. No abnormal extra-axial fluid ac cumulation is identified. There is normal enhancement in the intracranial vascular structures. No abn ormal parenchymal enhancement is noted. The extracranial structures are benign and intact. CONCLUSION: Several punctate areas of subacute infarction in the high convexity left parietal-occipital region an d in the left occipital periventricular white matter Marcelino Purdy MD on December 09, 2017 at 16:41 Board Certified Radiologist. This report was verified electronically.
--- NOTE | 2017-12-09 18:55 | HHI.PR ---
Review/Management Diagnosis follow up on [address] hour [address] TPA brain CT scan. If negative for hemorrhage, start aspirin 325 mg daily 24 hour after tpa. Recommend cardiology evaluation as outpatient to consider exterminator helper quality assurance monitor final to r/o intermittent atrial fibrillation If stable tomorrow, ok to discharge home from neuro standpoint on aspiring 325 mg daily and follow up with me in office in 3 weeks Diagnosis/Plan: Subjective Subjective Comments No acute events reported He feels right arm, hand and leg are now back to normal with normal strength and dexterity He tolerated TPA well with no bleeding complications Active Medications Current Medications Medications (Trade) Dose Ordered Sig/Kady Route Start Time Stop Time Status Last Admin Miscellaneous Information No Heparin, Warfarin, Aspir... UNSCH PRN XX 12/08/17 22:45 12/09/17 22:44 Potassium Chloride 100 ml @ 50 mls/hr Q2H PRN IV 12/08/17 23:00 Potassium Chloride 100 ml @ 50 mls/hr Q2H PRN IV 12/08/17 23:00 (K-Lyte Cl Eff) 50 meq UNSCH PRN PO 12/08/17 23:00 Potassium Chloride 100 ml @ 25 mls/hr UNSCH PRN IV 12/08/17 23:00 Potassium Chloride 100 ml @ 50 mls/hr Q2H PRN IV 12/08/17 23:00 Magnesium Sulfate 4 gm/Sodium Chloride 100 ml @ 50 mls/hr UNSCH PRN IV 12/08/17 23:00 (Mag-Ox) 800 mg UNSCH PRN PO 12/08/17 23:00 Magnesium Sulfate 2 gm/Sodium Chloride 100 ml @ 50 mls/hr UNSCH PRN IV 12/08/17 23:00 (K-Phos) 2,000 mg Q4H PRN PO 12/08/17 23:00 Sodium Phosphate 30 mmol/Sodium Chloride 250 ml @ 42 mls/hr UNSCH PRN IV 12/08/17 23:00 (K-Phos) 2,000 mg UNSCH PRN PO/TUBE 12/08/17 23:00 Potassium Phosphate 30 mmol/ Sodium Chloride 260 ml @ 42 mls/hr UNSCH PRN IV 12/08/17 23:00 (Trandate Inj) 20 mg Q15M PRN IV PUSH 12/08/17 23:00 12/09/17 04:20 (Apresoline Inj) 10 mg Q30M PRN IV PUSH 12/08/17 23:00 Sodium Chloride 1,000 ml @ 84 mls/hr [id number] IV 12/08/17 22:51 12/09/17 10:46 (Tylenol) 650 mg Q6H PRN PO 12/08/17 23:00 (Zofran Inj) 4 mg Q6H PRN IV PUSH 12/08/17 23:00 (Duoneb Neb) 1 ampule Q2HR NEB PRN INH 12/08/17 23:00 Miscellaneous Information 1 Q361D XX 12/08/17 23:00 (Chlorhexidine 2% Cloth) 3 pack Taper DAILY@04 TOP 12/09/17 04:00 12/05/18 03:59 (Chlorhexidine 2% Cloth) 3 pack UNSCH PRN TOP 12/08/17 23:00 (Bobbi-Colace) 1 tab BID PO 12/09/17 09:00 12/09/17 09:42 (Milk Of Magnmarsha Liq) 30 ml Q12H PRN PO 12/08/17 23:00 (Altace) 10 mg DAILY PO 12/09/17 09:30 12/09/17 11:39 (Romazicon Inj) 0.2 mg Q1M PRN IV PUSH 12/09/17 07:30 (Ativan) 1 mg Q4H PRN PO 12/09/17 07:30 (Ativan Inj) 1 mg Q4H PRN IV PUSH 12/09/17 07:30 (Ativan) 2 mg Q2H PRN PO 12/09/17 07:30 (Ativan Inj) 2 mg Q2H PRN IV PUSH 12/09/17 07:30 (Ativan Inj) 2 mg Q1H PRN IV PUSH 12/09/17 07:30 (Ativan Inj) 2 mg Q15M PRN IV PUSH 12/09/17 07:30 Allergies Allergies Coded Allergies No Known Allergies (Unverified12/08/17) Exam I&O / VS Vital Signs Date Time Temp Pulse Resp B/P (MAP) Pulse Ox O2 Delivery O2 Flow Rate FiO2 12/09/17 18:00 76 12/09/17 16:44 99 Nasal Cannula 2.00 12/09/17 16:00 78 12/09/17 16:00 97.7 78 15 126/67 (86) 97 12/09/17 14:00 86 12/09/17 12:00 72 12/09/17 12:00 98.1 72 17 141/69 (93) 95 12/09/17 10:00 78 12/09/17 08:00 75 12/09/17 08:00 98.0 75 13 127/60 (82) 99 12/09/17 07:00 98 Nasal Cannula 2.00 12/09/17 06:00 70 12/09/17 04:00 72 12/09/17 04:00 97.6 72 15 174/89 (117) 98 12/09/17 01:06 98 Nasal Cannula 2.00 12/09/17 00:46 12/09/17 00:20 81 16 167/88 (114) 99 Nasal Cannula 2.00 12/09/17 00:00 98.4 72 16 171/83 (112) 99 12/08/17 23:44 73 16 165/80 (108) 99 Nasal Cannula 2.00 12/08/17 23:21 73 16 180/85 (116) 98 Nasal Cannula 2.00 12/08/17 23:05 75 16 174/90 (118) 97 Nasal Cannula 2.00 12/08/17 22:55 77 16 170/81 (110) 97 Nasal Cannula 2.00 12/08/17 22:24 98 Nasal Cannula 2.00 12/08/17 22:20 73 16 156/83 (107) 97 Nasal Cannula 2.00 12/08/17 22:09 97.8 75 16 179/90 (119) 97 12/08/17 22:00 97 2.00 Exam Comments alert, oriented, speech normal CN normal MOTOR---5/5 BUE and BLE, normal fine motor. no drift Cerebellar--normal finger to nose Objective Radiology Results MRI--several small punctate areas of acute infarction left hemisphere mainly in MCA territory. MRA normal carotid US normal Micro and Labs Laboratory Tests Test 12/08/17 22:00 12/09/17 01:00 12/09/17 03:12 12/09/17 06:35 White Blood Count 7.4 10.4 Red Blood Count 4.13 3.74 Hemoglobin 13.9 12.7 Bedside Hemoglobin 14.6 Hematocrit 40.6 37.2 Bedside Hematocrit 43.0 Mean Corpuscular Volume 98.2 99.6 Mean Corpuscular Hemoglobin 33.7 34.0 Mean Corpuscular Hemoglobin Concent 34.4 34.1 Red Cell Distribution Width 12.9 12.9 Platelet Count 245 218 Mean Platelet Volume 7.5 7.6 Neutrophils (%) (Auto) 51.7 Lymphocytes (%) (Auto) 33.0 Monocytes (%) (Auto) 12.0 Eosinophils (%) (Auto) 2.9 Basophils (%) (Auto) 0.4 Neutrophils # (Auto) 3.8 Lymphocytes # (Auto) 2.4 Monocytes # (Auto) 0.9 Eosinophils # (Auto) 0.2 Basophils # (Auto) 0.0 CBC Comment DIFF FINAL Differential Comment Prothrombin Time 12.9 Prothromb Time International Ratio 1.3 Activated Partial Thromboplast Time 32.7 Fibrinogen 278 Bedside Sodium 134 Bedside Potassium 3.9 Bedside Chloride 94 Bedside Blood Urea Nitrogen 6 Bedside Creatinine 0.9 Bedside Glucose 97 Total Creatine Kinase 97 Troponin I LESS THAN 0.02 Triglycerides Level 112 63 Cholesterol Level 184 157 LDL Cholesterol 75 63 HDL Cholesterol 86.7 81.5 Cholesterol/HDL Ratio 2.12 1.92 Ethyl Alcohol Level 137 Nasal Screen MRSA (PCR) MRSA NOT DETECTED Blood Urea Nitrogen 6 Creatinine 0.57 Random Glucose 98 Calcium Level 8.4 Sodium Level 136 Potassium Level 3.9 Chloride Level 102 Carbon Dioxide Level 24.3 Anion Gap 10 Estimat Glomerular Filtration Rate 142 Hemoglobin A1c 5.6 Urine Color LIGHT-YELLOW Urine Turbidity CLEAR Urine pH 6.5 Urine Specific [place] 1.005 Urine Protein NEG Urine Glucose (UA) NEG Urine Ketones NEG Urine Occult Blood NEG Urine Nitrite NEG Urine Bilirubin NEG Urine Urobilinogen LESS THAN 2.0 Urine Leukocyte Esterase NEG Urine RBC LESS THAN 1 Urine WBC LESS THAN 1 Urine Bacteria RARE Diagnostic Tests echo cardio gram normal Gianfranco Casey MD PhD Dec 09, 2017 18:55
--- NOTE | 2017-12-09 23:59 | RADRPT ---
EXAM DATE/TIME: 12/09/2017 23:10 [facility] COMPARISON: CT BRAIN W/O CONTRAST, December 08, 2017, 22:14. INDICATIONS : Post tpa. Follow up stroke alert. RADIATION DOSE: 40.40 CTDIvol (mGy) MEDICAL HISTORY : Hypertension. SURGICAL HISTORY : None. ENCOUNTER: Subsequent ACUITY: 1 day PAIN SCALE: 0/10 LOCATION: cranial TECHNIQUE: Multiple contiguous axial images were obtained of the head. Using automated exposure control and adj ustment of the mA and/or kV according to patient size, radiation dose was kept as low as reasonably a chievable to obtain optimal diagnostic quality images. DICOM format image data is available electro nically for review and comparison. FINDINGS: CEREBRUM: The ventricles are mildly prominent and there is some decreased attenuation in the occipital perivent ricular white matter, unchanged from yesterday's CT scan.. No evidence of midline shift, mass lesion , hemorrhage or acute infarction. No extra-axial fluid collections are seen. POSTERIOR FOSSA: The cerebellum and brainstem are intact. The 4th ventricle is midline. The cerebellopontine angle i s unremarkable. EXTRACRANIAL: The visualized portion of the orbits is intact. SKULL: The calvaria is intact. No evidence of skull fracture. CONCLUSION: 1. Stable appearance to the brain status post TPA. No evidence of acute hemorrhage. Anthony Verma MD on December 09, 2017 at 23:57 Board Certified Radiologist. This report was verified electronically.
[2017-12-10] VITALS (11 sets, daily range): BP systolic 129–180; BP diastolic 59–87; PULSE 54–82; RESP 16–19; TEMP 97.6–98.3; O2SAT 95–100
[2017-12-10] MEDS: SODIUM CHLOR 0.9% 1000 ML INJ 1,000 ML IV SCH ×2 (00:52→09:47)
[2017-12-10] MEDS: CHLORHEXIDINE GLUCONATE 2 % 1 PACK (2 CLOTHS) TOP SCH (04:00)
[2017-12-10 05:53] LABS: HEMOGLOBIN 12.9 GM/DL (13.0-17.0); MEAN CELL VOLUME 98.9 FL (80.0-100.0); MEAN CORPUSCULAR HEMOGLOBIN 34.4 PG (27.0-34.0); MEAN CORPUSCULAR HGB CONC 34.8 % (32.0-36.0); MEAN PLATELET VOLUME 7.7 FL (7.0-11.0); PLATELET COUNT 198 TH/MM3 (150-450); RED BLOOD COUNT 3.74 MIL/MM3 (4.50-5.90); RED CELL DISTRIBUTION WIDTH 12.9 % (11.6-17.2); WHITE BLOOD COUNT 5.8 TH/MM3 (4.0-11.0)
[2017-12-10 06:18] LABS: BICARBONATE 25.7 MEQ/L (21.0-32.0); CALCIUM 8.9 MG/DL (8.5-10.1); CREATININE 0.67 MG/DL (0.60-1.30)
[2017-12-10] MEDS ORDERED: ASPIRIN EC 325 MG TABEC PO SCH (09:00)
[2017-12-10] MEDS: DOCUSATE SODIUM 50 MG/SENNA 8.6 MG TAB PO SCH (09:48)
[2017-12-10] MEDS: RAMIPRIL 5 MG CAP PO SCH (09:48)
--- NOTE | 2017-12-10 10:48 | HHI.PR ---
Subjective Remarks doing well feels back to baseline. Objective Vital Signs Date Time Temp Pulse Resp B/P (MAP) Pulse Ox O2 Delivery O2 Flow Rate FiO2 12/10/17 09:40 95 Nasal Cannula 2.00 12/10/17 08:00 97.7 58 16 180/86 (117) 97 12/10/17 08:00 58 12/10/17 07:00 100 Nasal Cannula 2.00 12/10/17 06:00 54 12/10/17 04:00 98.1 68 19 167/79 (108) 100 12/10/17 04:00 68 12/10/17 02:00 56 12/10/17 00:00 56 12/10/17 00:00 97.6 56 16 129/59 (82) 100 12/09/17 22:00 58 12/09/17 21:51 97 Nasal Cannula 2.00 12/09/17 20:00 75 12/09/17 20:00 98.0 80 19 126/67 (86) 100 12/09/17 19:00 100 Nasal Cannula 2.00 12/09/17 18:00 76 12/09/17 16:44 99 Nasal Cannula 2.00 12/09/17 16:00 78 12/09/17 16:00 97.7 78 15 126/67 (86) 97 12/09/17 14:00 86 12/09/17 12:00 72 12/09/17 12:00 98.1 72 17 141/69 (93) 95 I/O 12/09/17 12/09/17 12/09/17 12/10/17 12/10/17 12/10/17 07:00 15:00 23:00 07:00 15:00 23:00 Intake Total 120 ml 420 ml 450 ml Output Total 1500 ml 2100 ml 950 ml Balance -1380 ml -1680 ml -500 ml Intake Oral 120 ml 420 ml 450 ml Output Urine Total 1500 ml 2100 ml 950 ml Result Diagram: 12/10/1740312/10/17403 Objective Remarks awake alert fluent perrla motor intact no drift or leg lag dtrs 2+ gait per PT Medications and IVs ct neg for bleed mri c/w punctate areas of infarct left p/o pvwm. Assessment and Plan Assessment and Plan stroke s/p tpa -325mg asa qd PT-OT ok for outpt eval for loop. d/c planning. Maribel Myers MD Dec 10, 2017 10:48
[2017-12-10] MEDS ORDERED: ASPI325T33 PO (16:35)
[2017-12-10] MEDS ORDERED: AMLO5 PO (16:35)
--- NOTE | 2017-12-10 16:37 | HHI.DCPOC ---
Discharge Care Plan Diagnosis: (1) HTN (hypertension) (2) CVA (cerebral vascular accident) Goals to Promote Your Health * To prevent worsening of your condition and complications * To maintain your health at the optimal level Directions to Meet Your Goals Take your medications as prescribed Follow your dietary instruction Follow activity as directed Keep your appointments as scheduled Take your immunizations and boosters as scheduled If your symptoms worsen call your PCP, if no PCP go to Urgent Care Center or Emergency Room Smoking is Dangerous to Your Health. Avoid second hand smoke Call the 24-hour hour crisis hotline for domestic abuse at Satish Aguero DO Dec 10, 2017 16:37
[2017-12-10] MEDS ORDERED: amLODIPine BESYLATE 5 MG TAB PO SCH (16:45)
--- NOTE | 2017-12-10 16:51 | HHI.PR ---
Subjective Remarks The patient was resting in a chair. He says his symptoms have resolved. His was at the bedside. Their questions were answered. They were anxious to go home. They said they will follow up as an outpatient. Discussed with nursing. Objective Vitals Vital Signs Date Time Temp Pulse Resp B/P (MAP) Pulse Ox O2 Delivery O2 Flow Rate FiO2 12/10/17 12:00 97.7 60 16 159/87 (111) 97 12/10/17 12:00 60 12/10/17 10:00 74 12/10/17 09:40 95 Nasal Cannula 2.00 12/10/17 08:00 97.7 58 16 180/86 (117) 97 12/10/17 08:00 58 12/10/17 07:00 100 Nasal Cannula 2.00 12/10/17 06:00 54 12/10/17 04:00 98.1 68 19 167/79 (108) 100 12/10/17 04:00 68 12/10/17 02:00 56 12/10/17 00:00 56 12/10/17 00:00 97.6 56 16 129/59 (82) 100 12/09/17 22:00 58 12/09/17 21:51 97 Nasal Cannula 2.00 12/09/17 20:00 75 12/09/17 20:00 98.0 80 19 126/67 (86) 100 12/09/17 19:00 100 Nasal Cannula 2.00 12/09/17 18:00 76 I/O 12/09/17 12/09/17 12/09/17 12/10/17 12/10/17 12/10/17 07:00 15:00 23:00 07:00 15:00 23:00 Intake Total 120 ml 420 ml 450 ml Output Total 1500 ml 2100 ml 950 ml Balance -1380 ml -1680 ml -500 ml Intake Oral 120 ml 420 ml 450 ml Output Urine Total 1500 ml 2100 ml 950 ml Result Diagram: 12/10/174 12/10/174 Imaging Last Impressions Head Magnetic Resonance Angiography 12/09/17 0000 Signed Impressions: Service Date/Time: Saturday, December 09, 2017 16:06 - CONCLUSION: Normal examination. Marcelino Purdy MD Head CT 12/09/17 0000 Signed Impressions: Service Date/Time: Saturday, December 09, 2017 23:10 - CONCLUSION: 1. Stable appearance to the brain status post TPA. No evidence of acute hemorrhage. Anthony Verma MD Carotid Artery Ultrasound 12/09/17 0000 Signed Impressions: Service Date/Time: Saturday, December 09, 2017 08:37 - CONCLUSION: There is no evidence for hemodynamically significant stenosis. Deepak Dexter MD Brain MRI 12/09/17 0000 Signed Impressions: Service Date/Time: Saturday, December 09, 2017 16:06 - CONCLUSION: Several punctate areas of subacute infarction in the high convexity left parietal-occipital region and in the left occipital periventricular white matter Marcelino Purdy MD Objective Remarks GENERAL: Resting comfortably. HEENT: Normocephalic. Atraumatic. Pupils equal, round, reactive, conjugate. Mucous membranes are moist NECK: Trachea is midline. Airway widely patent. CHEST: Clear to auscultation bilaterally. CARDIOVASCULAR: Normal rate, regular rhythm. Sinus by telemetry. No JVD. ABDOMEN: Soft, nontender, nondistended. No guarding. BS active. MUSCULOSKELETAL: Pulses 2+. No peripheral edema. Well perfused. NEUROLOGICAL: No gross deficits PSYCH: Mood and affect appropriate Medications and IVs Current Medications Medications (Trade) Dose Ordered Sig/Kady Route Start Time Stop Time Status Last Admin Potassium Chloride 100 ml @ 50 mls/hr Q2H PRN IV 12/08/17 23:00 Potassium Chloride 100 ml @ 50 mls/hr Q2H PRN IV 12/08/17 23:00 (K-Lyte Cl Eff) 50 meq UNSCH PRN PO 12/08/17 23:00 Potassium Chloride 100 ml @ 25 mls/hr UNSCH PRN IV 12/08/17 23:00 Potassium Chloride 100 ml @ 50 mls/hr Q2H PRN IV 12/08/17 23:00 Magnesium Sulfate 4 gm/Sodium Chloride 100 ml @ 50 mls/hr UNSCH PRN IV 12/08/17 23:00 (Mag-Ox) 800 mg UNSCH PRN PO 12/08/17 23:00 Magnesium Sulfate 2 gm/Sodium Chloride 100 ml @ 50 mls/hr UNSCH PRN IV 12/08/17 23:00 (K-Phos) 2,000 mg Q4H PRN PO 12/08/17 23:00 Sodium Phosphate 30 mmol/Sodium Chloride 250 ml @ 42 mls/hr UNSCH PRN IV 12/08/17 23:00 (K-Phos) 2,000 mg UNSCH PRN PO/TUBE 12/08/17 23:00 Potassium Phosphate 30 mmol/ Sodium Chloride 260 ml @ 42 mls/hr UNSCH PRN IV 12/08/17 23:00 (Trandate Inj) 20 mg Q15M PRN IV PUSH 12/08/17 23:00 12/09/17 04:20 (Apresoline Inj) 10 mg Q30M PRN IV PUSH 12/08/17 23:00 Sodium Chloride 1,000 ml @ 84 mls/hr [id number] IV 12/08/17 22:51 12/10/17 00:52 (Tylenol) 650 mg Q6H PRN PO 12/08/17 23:00 (Zofran Inj) 4 mg Q6H PRN IV PUSH 12/08/17 23:00 (Duoneb Neb) 1 ampule Q2HR NEB PRN INH 12/08/17 23:00 Miscellaneous Information 1 Q361D XX 12/08/17 23:00 (Chlorhexidine 2% Cloth) 3 pack Taper DAILY@04 TOP 12/09/17 04:00 12/05/18 03:59 (Chlorhexidine 2% Cloth) 3 pack UNSCH PRN TOP 12/08/17 23:00 (Bobbi-Colace) 1 tab BID PO 12/09/17 09:00 12/10/17 09:48 (Milk Of Magnesia Liq) 30 ml Q12H PRN PO 12/08/17 23:00 (Altace) 10 mg DAILY PO 12/09/17 09:30 12/10/17 09:48 (Romazicon Inj) 0.2 mg Q1M PRN IV PUSH 12/09/17 07:30 (Ativan) 1 mg Q4H PRN PO 12/09/17 07:30 (Ativan Inj) 1 mg Q4H PRN IV PUSH 12/09/17 07:30 (Ativan) 2 mg Q2H PRN PO 12/09/17 07:30 (Ativan Inj) 2 mg Q2H PRN IV PUSH 12/09/17 07:30 (Ativan Inj) 2 mg Q1H PRN IV PUSH 12/09/17 07:30 (Ativan Inj) 2 mg Q15M PRN IV PUSH 12/09/17 07:30 (Ecotrin Ec) 325 mg DAILY PO 12/10/17 09:00 12/10/17 09:48 (Norvasc) 5 mg DAILY PO 12/10/17 16:45 A/P Assessment and Plan Acute CVA Right-sided weakness Right-sided ataxia Hypertensive emergency 67-year-old male with new onset of right-sided weakness and ataxia, likely acute CVA. Now status post systemic TPA with resolving symptoms. Neuro consult appreciated. LDL not elevated. MRI with several punctate areas of subacute infarction in the high convexity left parietal-occipital region and in the left occipital periventricular white matter. Repeat head CT stable. Echo with EF 50- 55%. - Frequent neuro checks - Speech therapy, physical therapy, Occupational Therapy - continue ramipril. Add amlodipine 5 mg daily. - Neurology follow-up as outpt. - continue ASA 325 mg daily. - refer to cardiology for loop recorder as outpt. PPx: Ambulation Discharge Planning D/c home Satish Aguero DO Dec 10, 2017 16:51
== END 2017-12-10 19:05 | disposition home or self-care (01) | DRG 62 ==
LOC: NEPE 22:08 → NEDA 22:47 → N03A 12-09 00:54
PROVIDERS: ADMIT Hospitalist; ATTEND Hospitalist
DX: I63.9 Cerebral infarction, unspecified (principal); I16.1 Hypertensive emergency; G81.91 Hemiplegia, unspecified affecting right dominant side; I10 Essential (primary) hypertension; R40.2412 Glasgow coma scale score 13-15, at arrival to emergency department; R27.0 Ataxia, unspecified; R29.706 NIHSS score 6; F10.129 Alcohol abuse with intoxication, unspecified; Y90.6 Blood alcohol level of 120-199 mg/100 ml; Z87.891 Personal history of nicotine dependence
CPT/HCPCS: 70450; 70544; 70553; 80048; 80061; 80307; 81001; 82550; 83036; 84484; 85025; 85027; 85384; 85610; 85730; 86850; 86900; 86901; 87641; 93005; 93306; 93880; 94150; 94640; 94667; 94668; 96374; A9579; J2997; J7030